=== PATIENT | female | born 1980 | race Caucasian/White ===

== ENCOUNTER 2019-09-13 03:15 | Observation (INO) ==
[2019-09-13] MEDS ORDERED: NS 1,000 ML IV ONE ×2 (03:18→05:17)
[2019-09-13] MEDS ORDERED: TORADOL IV ONE (03:18)
[2019-09-13] MEDS ORDERED: MORPHINE IV ONE ×2 (03:18→05:17)
[2019-09-13] MEDS ORDERED: ZOFRAN IV ONE (03:18)
--- NOTE | 2019-09-13 03:27 | PROVIDER DOCUMENTATION ---
HPI-Abdominal Pain/GI Problem - General Stated Complaint: abd pain Time Seen by Provider: 09/13/19 03:17 Source: patient, EMS Allergies/Adverse Reactions: Patient Allergies Allergy/AdvReac Type Severity Reaction Status Date / Time amoxicillin trihydrate * Allergy VOMITING Verified 09/13/19 03:43 [From Amoxil] Latex, Natural Rubber Allergy RASH Verified 09/13/19 03:43 tramadol Allergy NAUSEA/VOMI Verified 09/13/19 03:43 TING Home Medications: Home Medication List Medication Instructions Recorded Confirmed Last Taken Type NK [No Home Medications] 09/13/19 09/13/19 Unknown History - History of Present Illness-ABD Nature of Presenting Problems: Brought by EMS complaining of abdominal pain since yesterday, began dinorah umbilical and this evening localized to the RLQ and is severe. There has been subjective fever/chills/malaise. She has been anorectic all day. There has been some nausea but no vomiting. No diarrhea, hematuria. There has been some mild dysuria. She has had a kidney stone before, but this feels different. States hurts to palpate, walk and when ambulance hit bumps in the road. Abdominal Pain Onset Location: reports: RLQ Pain Radiation: reports: no radiation Quality of Pain: reports: pressure, sharp Severity in ED: reports: severe Onset/Duration: reports: 24 hours ago Timing: reports: still present, constant, changing over time, getting worse Activities at Onset: reports: light activity Exposure to sick contacts?: No Modifying Factors: improves with: lying down. worse with: movement, palpation Associated Symptoms: reports: fever/chills, loss of appetite, malaise, nausea. denies: chest pain, cough, diaphoresis, diarrhea, shortness of breath, pain with inspiration, swelling/mass in abdomen, vomiting Last BM: unsure Dark Stools Present?: reports: none noticed Rectal Bleeding: reports: none Emesis Description: reports: none Bruising or Bleeding Gums?: No Similar Symptoms Previously?: No Recently seen or treated by another doctor?: No Review of Systems - Adult - REVIEW OF SYSTEMS - ADULT Constitutional: reports: see HPI, chills, fever Eyes: reports: no symptoms reported Ears, Nose, Mouth & Throat: reports: no symptoms reported Cardiovascular: reports: no symptoms reported Respiratory: reports: no symptoms reported Gastrointestinal: reports: see HPI, abdominal pain, nausea, poor appetite. denies: hematemesis, constipation, diarrhea, difficulty swallowing, frequent heartburn, rectal bleeding, vomiting Genitourinary: reports: see HPI, dysuria. denies: discharge, frequency, flank pain, frequent UTI's, hematuria, hesitency, incontinence, urinary retention, urgency Musculoskeletal: reports: no symptoms reported Integumentary: reports: no symptoms reported Neurological: reports: no symptoms reported Psychiatric: reports: no symptoms reported Endocrine: reports: no symptoms reported Hematologic/Lymphatic: reports: no symptoms reported Allergic/Immunologic: reports: no symptoms reported All Other Systems: Reviewed and Negative Past History - Adult - PAST MEDICAL HISTORY-ADULT Review of Records: reports: Old Records Reviewed, Nursing Assessment Review, Medications Reviewed, Social history reviewed & non-contributory. Major Childhood Illnesses: reports: denies history Cardiovascular: reports: denies history Respiratory: reports: denies history Gastrointestinal: reports: denies history Obstetrical/Gynecological: reports: denies history Genitourinary: reports: kidney disease (polycystic kidney disease), kidney stones, other (nephrocalcinosis) Musculoskeletal: reports: denies history Neurological: reports: denies history Psychiatric: reports: anxiety, other (ADHD) Endocrine/Immune: reports: lupus Other Conditions: reports: denies history - PRIOR SURGERIES/PROCEDURES Surgical/Procedure History: reports: BTL, back/neck (rods in spine), other (abla tion) - IMMUNIZATION STATUS Childhood Immunizations: See Nurse Assessment Flu Vaccine: See Nurse Assessment - FAMILY HISTORY Family History: reviewed, not pertinent - SOCIAL HISTORY Smoking: cigarettes, greater than 1 pack/day Provider spent 3-5 mins advising pt. on dangers of tobacco.: Discussed manners to quit use, and f/u contacts for add'l counseling. Substance Use: none/never Alcohol Use Frequency: rarely Living Situation: family Physical Exam-General - PHYSICAL EXAM-ADULT Initial Vital Signs Reviewed: Yes - CONSTITUTIONAL General Appearance: appears well, alert, no apparent distress - EYES Eyes: PERRL/EOMI, pink conjunctivae - HEAD, EARS, NOSE, MOUTH & THROAT HENMT: normocephalic/atraumatic, moist mucous membranes, normal ENT inspection - NECK Neck: non-tender, full range of motion, supple, normal inspection - RESPIRATORY Respiratory: chest non-tender, lungs clear, normal breath sounds, no pleuratic chest pain, no respiratory distress, no accessory muscle use - CARDIOVASCULAR Cardiovascular: normal peripheral pulses, regular rate, rhythm, no edema, no gallop, no JVD, no murmur - GASTROINTESTINAL (ABDOMEN) Abdominal Exam: soft, no organomegaly, no pulsatile mass, abnormal bowel sounds (hypoactive), guarding (rlq), rebound, tenderness (rlq), McBurney's point tenderness, obturator sign, psoas sign, Rovsing's sign. 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 II-XII nml as tested, grossly normal, no motor/sensory deficits - PSYCHIATRIC Psych/Mental Status: normal mood/affect, normal thought content, normal thought process, oriented x 3 Progress - PLAN OF CARE/RESULTS Progress/Plan/Lab Results: Orders Category Date Time Status ED: Urine Bedside ORDERED Care 09/13/19 03:17 Active NPO Diet 09/13/19 03:[address] ABD/PELVIS W/IV CONT ONLY [CT] Stat Exams 09/13/19 03:18 Ordered BLOOD CULTURE [BLDCUL] Stat Lab 09/13/19 03:18 Ordered CBC WITH ELECTRONIC DIFF [HEME] Stat Lab 09/13/19 03:17 Uncollected COMPREHENSIVE METABOLIC PANEL [CHEM] Stat Lab 09/13/19 03:18 Uncollected LACTATE, PLASMA [CHEM] Stat Lab 09/13/19 03:17 Uncollected URINALYSIS W/POSS RFLX CULT [URINALYSIS] Stat Lab 09/13/19 03:17 Uncollected 0.9% Sodium Chloride Inj [Ns] 1,000 ml Med 09/13/19 03:18 Active IV 999 mls/hr Ketorolac [Toradol] Med 09/13/19 03:18 Discontinued 30 mg IV NOW ONE Morphine Med 09/13/19 03:18 Discontinued 4 mg IV NOW ONE Ondansetron [Zofran] Med 09/13/19 03:18 Discontinued 4 mg IV NOW ONE Result Diagrams: 09/13/19 03:37 09/13/19 03:37 - REASSESSMENT Reassessment #1 Time Reassessed: 05:18 Status: improving (Better after IV morphine 4mg x 2, ondansetron, toradol and IVF. Dr. Alonso requested Mefoxin for ABX) - CT/MRI 1 CT Study: Abdomen Impression: Abnormal (Acute appendicitis without rupture per [facility].) - CONSULTS/PCP/HOSPITALIST Notification #1 *Consult/PCP/Hospitalist*: Celeste Time Discussed: 05:17 Consult Disposition: Will see in ED, Admit Departure - Departure Date of Disposition Decision: 09/13/19 Time of Disposition Decision: 05:18 DIAGNOSIS: Acute appendicitis Qualifiers: Acute appendicitis type: with generalized peritonitis Appendicitis gangrene presence: without gangrene Appendicitis abscess presence: without abscess Disposition: ADMITTED INPATIENT 09 Certified Medical Emergency: Emergent Condition: Fair - Critical Care Note This patient required my direct & personal management of CC.: No Attestation - Physician/ SPARKLE Attestation Patient care was provided by Advanced Practice Provider:: No The physician spent face to face time with patient:: Yes Advanced Practice Provider documentation review:: Supervising physician onsite and consulted in the evaluation and care of this patient. The physician did have a face to face encounter with the patient.
[2019-09-13 03:46] LABS: BASO# 0.09 X1000 (0.0-0.2); BASO% 0.6 % (0.0-0.8); EOS# 0.38 X1000 (0.0-0.7); EOS% 2.3 % (0.0-10.0); HEMATOCRIT 41.4 % (37.0-47.0); HEMOGLOBIN 13.7 g/dL (12.0-16.0); IMM GRAN# 0.06 X1000 (0.0-0.04); IMM GRAN% 0.4 % (0.0-0.5); LYMPH# 2.19 X1000 (1.2-3.4); LYMPH% 13.5 % (20.5-51.1); MCH 30.9 PG (27-31); MCHC 33.1 g/dL (33-37); MCV 93.5 FL (81-99); MONO# 0.52 X1000 (0.11-0.59); MONO% 3.2 % (1.7-9.3); MPV 9.8 FL (7.4-10.4); NEUT# 13.03 X1000 (1.4-6.5); PLT 366 X1000 (130-400); RBC 4.43 XMIL (4.2-5.4); RDW 13.7 % (11.5-14.5); WBC 16.27 X1000 (4.8-10.8)
[2019-09-13 04:06] LABS: URINE SOURCE CLEAN CATCH
[2019-09-13 04:09] LABS: BILIRUBIN URINE NEGATIVE (NEGATIVE); BLOOD URINE NEGATIVE (NEGATIVE); COLOR YELLOW; GLUCOSE URINE NEGATIVE (NEGATIVE); KETONE URINE NEGATIVE (NEGATIVE); LEUKOCYTES URINE NEGATIVE (NEGATIVE); NITRITE URINE NEGATIVE (NEGATIVE); PH URINE 6.5; PROTEIN URINE TRACE mg/dL (NEGATIVE); SP GRAVITY URINE 1.019; TURBIDITY URINE CLEAR (CLEAR); UROBILINOGEN URINE 2 mg/dL (NORMAL)
[2019-09-13 04:13] LABS: AGAP 12; ALB/GLOB RATIO 1.3; ALBUMIN 3.8 g/dL (3.5-5.0); ALKALINE PHOSPHATASE 144 U/L (32-104); BUN 12 mg/dL (8-22); CALCIUM 8.9 mg/dL (8.8-10.2); CHLORIDE 103 mmol/L (98-107); COSMO 272; CREATININE 0.7 mg/dL (0.5-0.9); ESTIMATED GFR > 60; GLUCOSE 109 mg/dL (70-104); GOT 21 U/L (10-30); GPT 42 U/L (10-36); POTASSIUM 3.2 mmol/L (3.5-5.1); SODIUM 136 mmol/L (136-145); TCO2 21 mmol/L (25-35); TOTAL BILIRUBIN 0.22 mg/dL (0.20-1.00); TOTAL PROTEIN 6.8 g/dL (6.3-8.3)
[2019-09-13 04:22] LABS: UR EPITHELIAL CELLS <10 /HPF (<10); URINE BACTERIA NEGATIVE /HPF; URINE CASTS NONE SEEN; URINE CRYSTALS NONE SEEN; URINE RBC <10 /HPF (<10); URINE SMALL ROUND CELLS NONE SEEN; URINE WBC <10 /HPF (<10); URINE YEAST NONE SEEN
[2019-09-13] MEDS ORDERED: MEFOXIN 2 GM/D5W IV ONE (05:16)
[2019-09-13] MEDS ORDERED: LR 1,000 ML IV ONE (07:53)
[2019-09-13] MEDS: MORPHINE IV PRN ×5 (08:05→16:12)
[2019-09-13] MEDS: ZOFRAN IV PRN ×3 (08:23→21:03)
--- NOTE | 2019-09-13 08:33 | Diag Imaging Result Doc PS360 ---
EXAM: CT ABD/PELVIS W/IV CONT ONLY INDICATION: RLQ pain, r/o appy TECHNIQUE: This exam was performed using automated exposure control, adjustment of mA or kV according to patient size, and/or use of iterative reconstruction technique. COMPARISON: 09/17/2018 FINDINGS: The liver, spleen, gallbladder, pancreas, and adrenal glands are unremarkable. There are multiple bilateral simple renal cysts that are stable. There is nonobstructive nephrolithiasis. There is no hydronephrosis. The urinary bladder is unremarkable. There is a small left ovarian cyst. The appendix is dilated up to 9.5 mm and there is mild periappendiceal fat opacification consistent with acute appendicitis. No periappendiceal abscess or free abdominal gas is appreciated to indicate perforation. There is no evidence of bowel wall thickening or bowel obstruction. The remainder of the GI tract is essentially unremarkable. There is scoliosis. Ross rods are in place. There is no evidence of acute osseous abnormality. IMPRESSION: 1.Acute appendicitis with no evidence of perforation. 2.Other incidental/nonacute findings detailed above. Electronically signed by Fredi Contreras 09/13/2019 8:30 AM
--- NOTE | 2019-09-13 09:47 | HISTORY AND PHYSICAL ---
ADMITTING DIAGNOSIS: Appendicitis. HISTORY OF PRESENT ILLNESS: A 39-year-old female presenting with pain that started in the periumbilical, and generalized in the right lower quadrant starting yesterday. There have been subjective fever, chills and malaise. She has had associated anorexia. She had a CT scan in the emergency department that showed appendicitis. The pain again is sharp and in the right lower quadrant. PAST MEDICAL HISTORY: History of lupus, history of kidney stones, history of polycystic kidney disease, history of seizures, history of ADHD, history of OCD. PAST SURGICAL HISTORY: Includes previous ureteral stents, lithotripsy, surgical intervention on her back, and tubal ligation. SOCIAL HISTORY: Current smoker. ALLERGIES: Amoxicillin, latex, tramadol. FAMILY HISTORY: Reviewed with the patient and noncontributory. HOME MEDICATIONS: None. REVIEW OF SYSTEMS: A full 14 systems reviewed, negative except as otherwise specified in HPI. PHYSICAL EXAMINATION: VITAL SIGNS: Patient is currently afebrile. Vital signs stable. GENERAL EXAM: No acute distress. Alert, oriented female looks stated age. HEENT: Normocephalic, atraumatic. Pupils equal, round, reactive to light. Mucous membranes moist. Oropharynx benign. NECK: Supple. Trachea midline. CARDIOVASCULAR: Regular rate and rhythm. LUNGS: Grossly clear. ABDOMEN: Tender to palpation in the right lower quadrant with positive rebound. EXTREMITIES: Moves all extremities. NEUROLOGIC: Grossly intact. SKIN: No signs of jaundice. VASCULAR: All extremities perfused. LABORATORY: White blood cell count 16, hematocrit is normal, platelet count is normal. Urine test is negative. RADIOLOGY: CT scan independently reviewed and radiology report reviewed. It looks like appendicitis. ASSESSMENT AND PLAN: A 39-year-old female with appendicitis. 1. Appendicitis. At this time, we will plan on surgical intervention. We will admit her, put her on intravenous fluids, intravenous antibiotics and intravenous pain medicine. We will keep her on nothing by mouth. We will plan on surgical intervention this afternoon. Discussed for the risks, benefits, alternatives of the procedure; risks including, but not limited to bleeding, infection, risk of anesthesia, risk of anastomotic breakdown, risk of injuring other organs discussed. She voiced understanding, wished to proceed with procedure. cc: Lucio Alonso MD
[2019-09-13] MEDS: MEFOXIN 2 GM/NS 2 GM/50 ML IVPB IV SCH ×2 (10:04→17:04)
[2019-09-13] MEDS: OFIRMEV 1000 MG/ISOTONIC SOLN 1,000 MG/100 ML BOTTLE IV PRN ×2 (12:10→20:15)
[2019-09-13] MEDS ORDERED: VERSED ONE ×2 (16:55→17:45)
[2019-09-13] MEDS ORDERED: FENTANYL ONE (16:56)
[2019-09-13] MEDS ORDERED: DIPRIVAN 1% ONE (16:56)
[2019-09-13] MEDS ORDERED: MARCAINE 0.25% PF ONE (17:32)
[2019-09-13] MEDS ORDERED: LR 1,000 ML ONE (17:32)
[2019-09-13] MEDS ORDERED: ZOFRAN ONE ×2 (17:45→19:00)
[2019-09-13] MEDS ORDERED: XYLOCAINE-MPF 2% ONE (18:43)
[2019-09-13] MEDS ORDERED: DECADRON ONE (19:00)
[2019-09-13] MEDS ORDERED: ROBINUL ONE (19:01)
[2019-09-13] MEDS ORDERED: NEOSTIGMINE ONE (19:02)
[2019-09-13 19:26] LABS: URINE SOURCE CATH
[2019-09-13 19:32] LABS: BILIRUBIN URINE NEGATIVE (NEGATIVE); BLOOD URINE NEGATIVE (NEGATIVE); COLOR YELLOW; GLUCOSE URINE NEGATIVE (NEGATIVE); KETONE URINE 10 mg/dL (NEGATIVE); LEUKOCYTES URINE NEGATIVE (NEGATIVE); NITRITE URINE NEGATIVE (NEGATIVE); PROTEIN URINE NEGATIVE (NEGATIVE); SP GRAVITY URINE 1.024; TURBIDITY URINE CLEAR (CLEAR); UROBILINOGEN URINE NORMAL (NORMAL)
[2019-09-13 19:33] LABS: UR EPITHELIAL CELLS <10 /HPF (<10); URINE BACTERIA NEGATIVE /HPF; URINE RBC <10 /HPF (<10); URINE WBC <10 /HPF (<10)
[2019-09-13] MEDS: NORCO-10 PO PRN (20:16)
[2019-09-13] MEDS: PERIDEX MT SCH (21:10)
[2019-09-14] MEDS: DILAUDID IV PRN ×3 (01:34→09:21)
[2019-09-14] MEDS: MEFOXIN 2 GM/NS 2 GM/50 ML IVPB IV SCH ×2 (01:41→08:12)
[2019-09-14] MEDS: NORCO-10 PO PRN (04:21)
--- NOTE | 2019-09-14 04:56 | OPERATIVE NOTE ---
PROCEDURE DATE: 09/13/2019 PREOPERATIVE DIAGNOSIS: Appendicitis. POSTOPERATIVE DIAGNOSIS: Appendicitis. PROCEDURE: Laparoscopic appendectomy. SURGEON: Lucio Alonso MD. UMBRELLA TIPPER MACHINE: None. ANESTHESIA: General endotracheal. OPERATIVE FINDINGS: Appendicitis. COMPLICATIONS: None at time of dictation. ESTIMATED BLOOD LOSS: 5 mL. SPECIMEN REMOVED: Appendix. BRIEF HISTORY: A 39-year-old female presenting with classic symptoms and it was felt that she would benefit from appendectomy. The risks, benefits, and alternatives were discussed and all questions answered. DESCRIPTION OF PROCEDURE: After informed consent was obtained, the patient was brought to the operative theatre, placed on the operating table in supine position. General endotracheal anesthesia was then performed without complication. Formal time-out was then performed confirming patient, date, procedure. All were agreement. At that time attention was given to the abdomen. An infraumbilical incision was made, through which using Optiview technique, we inserted a 12 mm trocar and connected it to insufflation. Pneumoperitoneum was achieved. Under direct visualization, we placed 2 more trocars, both 5 mm, 1 in the left lower quadrant and 1 in the right upper quadrant. Using these, the appendix was identified. There was omentum attached to it. We were able to free this up, elevated it, and made a window in the base of the mesoappendix. Fired a stapler across the base of the appendix with good results. We then fired a stapler across the mesoappendix with good results. There was no bleeding. No drainage of stool or succus. No injury to the surrounding tissues. We placed the appendix into an EndoCatch and brought it out through the infraumbilical incision. We then reexamined the abdomen and suctioned it clean. There was some mild purulence noted in the abdomen but again nothing real significant. We were able to irrigate it out until the suction fluid was clear. We then closed the infraumbilical incision with 0 Vicryl on a Conner-Isis device. Removed all trocars, disconnected insufflation. Pneumoperitoneum was released. All skin incisions were closed with 4-0 Monocryl. Patient tolerated the procedure well and was transferred back to the recovery room. cc: Lucio Alonso MD
--- NOTE | 2019-09-14 06:24 | GENERAL SURGERY PROGRESS NOTE ---
DATE: 09/14/2019 Patient is doing well. She has been hemodynamically stable. Pain is better than it was. I think from a surgical point of view she can go home. She was given additional antibiotics given the purulence in her abdomen, but she is doing well. cc: Lucio Alonso MD
[2019-09-14 07:37] VITALS: BP 117/70
[2019-09-14] MEDS: PERIDEX MT SCH (08:17)
== END 2019-09-14 09:30 | disposition home or self-care (01) ==
LOC: ED 03:15 → 4N 03:15
PROVIDERS: ADMIT Surgery; ATTEND Surgery